=== PATIENT | female | born 2000 | race Caucasian/White ===

== ENCOUNTER 2018-03-04 17:48 | Emergency (ER) | payer OTHER ==
[~2018-03-04] VITALS: Ht 167.6 cm; Wt 45.0 kg
[2018-03-04 18:34] LABS: URINE HCG NEGATIVE (NEG)
[2018-03-04 18:50] LABS: CLARITY,URINE CLEAR (Clear); COLOR,URINE YELLOW (Yellow); GLUCOSE, URINE NEGATIVE (Neg); KETONES,URINE NEGATIVE (Neg); LEUKOCYTE ESTERASE ,URINE NEGATIVE (Neg); NITRITES, URINE NEGATIVE (Neg); OCCULT BLOOD,URINE SMALL (Neg); PROTEIN,URINE 30 mg/dl (Neg)
[2018-03-04 18:51] LABS: UA COLLECTION TYPE CLN CATCH MIDSTREAM
[2018-03-04 18:56] LABS: AMORPHOUS URATES 3+; BACTERIA,URINE 1+ /HPF (Neg); MUCUS STRANDS MANY /LPF (Neg); SQUAMOUS EPITHELIAL CELL,UR MODERATE /LPF (FEW); WBC,URINE NONE SEEN /HPF (0-4)
[2018-03-04 20:19] VITALS: BP 127/92
== END 2018-03-04 20:20 | disposition home or self-care (01) ==
LOC: ER 17:49
DX: R55 Syncope and collapse (principal); R11.0 Nausea; R25.1 Tremor, unspecified
CPT/HCPCS: 70450; 81001; 81025; 93005; 99284